=== PATIENT | female | born 1990 | race Caucasian/White ===

== ENCOUNTER 2017-06-15 04:13 | Emergency (ER) | payer BC ==
[~2017-06-15] VITALS: Ht 177.8 cm; Wt 69.3 kg
[~2017-06-15 04:13] MED LIST: BENTYL10 MG PO; IMODIUM MS REL1 EACH PO; Motrin PO; ZOFRAN4 MG PO
[2017-06-15] MEDS ORDERED: ZYRTEC10 M2 PO (04:41)
[2017-06-15 05:15] VITALS: BP 141/86
== END 2017-06-15 05:16 | disposition home or self-care (01) ==
LOC: EME 04:13
DX: L50.9 Urticaria, unspecified (principal); F41.9 Anxiety disorder, unspecified
CPT/HCPCS: 99281; 99283